=== PATIENT | male | born 1945 | race Caucasian/White ===

== ENCOUNTER 2017-07-01 09:52 | Emergency (ER) | payer OTHER ==
[~2017-07-01] VITALS: Ht 182.9 cm; Wt 68.1 kg
[~2017-07-01 09:52] MED LIST: DOXAZOSIN MESYLA4 MG PO; GLIMEPIRIDE2 MG PO; INDOMETHACIN50 MG PO; LOSARTAN POTAS100 MG PO; VENLAFAXINE HCL75 MG PO
[2017-07-01] MEDS ORDERED: PERCOCET 5/31 TABLET PO (14:53)
[2017-07-01 15:23] VITALS: BP 184/85
== END 2017-07-01 15:24 | disposition home or self-care (01) ==
LOC: EME 09:52
DX: S72.001A Fracture of unspecified part of neck of right femur, initial encounter for closed fracture (principal); W01.0XXA Fall on same level from slipping, tripping and stumbling without subsequent striking against object, initial encounter; Y92.000 Kitchen of unspecified non-institutional (private) residence as the place of occurrence of the external cause; M85.88 Other specified disorders of bone density and structure, other site; Z96.641 Presence of right artificial hip joint; E11.9 Type 2 diabetes mellitus without complications; Z79.84 Long term (current) use of oral hypoglycemic drugs; Z87.891 Personal history of nicotine dependence
CPT/HCPCS: 72192; 73502; 99281; 99284; J2270; J3010

== ENCOUNTER 2017-07-29 21:36 | Inpatient (IN) | payer OTHER ==
[~2017-07-29] VITALS: Ht 182.9 cm; Wt 69.9 kg
[~2017-07-29 21:36] MED LIST changes: +PERCOCET 5/31 TABLET PO
[2017-07-29 22:35] LABS: EOSINOPHIL (%) 1.5 % (0-5); EOSINOPHIL COUNT 0.1 K/uL (0-0.3); IMMATURE GRANULOCYTE COUNT 0.1 K/uL; INSTRUMENT ABS NEUTROPHIL CT 6.4 K/uL; LYMPHOCYTE COUNT 2.1 K/uL (1.0-2.8); MCH 29.6 PG (29.0-34.0); MCHC 33.8 G/DL (30.0-36.0); MCV 87.6 FL (86-99); MEAN PLAT.VOLUME 9.4 uM^3 (9.0-12.4); MONOCYTE (%) 8.6 % (3-12); MONOCYTE COUNT 0.8 K/uL (0-0.8); NEUTROPHIL (%) 66.7 % (45-76); NEUTROPHIL COUNT 6.4 K/uL (1.8-6.4); PLATELET COUNT 252 K/uL (156-360); RBC DIS.WIDTH-SD 41.6 % (39-53); RED BLOOD COUNT 3.88 M/uL (4.00-5.50); WHITE BLOOD COUNT 9.6 K/uL (4.1-10.2)
[2017-07-29 22:54] LABS: CHLORIDE 96 mEq/L (99-109); POTASSIUM 4.4 mEq/L (3.7-5.4); SODIUM 128 mEq/L (136-147)
[2017-07-29 22:56] LABS: GLUCOSE 180 mg/dL (70-99)
[2017-07-29 22:57] LABS: ANION GAP 10 MEQ/L (2-14)
[2017-07-29 22:58] LABS: TOTAL BILIRUBIN 0.3 mg/dL (0.0-1.0)
[2017-07-29 22:59] LABS: SERUM ETHYL ALCOHOL < 10 mg/dL
[2017-07-29 23:00] LABS: ALKALINE PHOSPHATASE 110 IU/L (3-129); GFR ESTIMATE (CALCULATED) > 59 mL/min/ (58.99-99999)
[2017-07-29 23:02] LABS: UREA NITROGEN (BUN) 19 mg/dL (9-23)
[2017-07-29 23:03] LABS: SALICYLATE 20.6 MG/DL (15-30)
[2017-07-29 23:34] LABS: AMPHETAMINE NEGATIVE (500 ng/mL); BARBITURATES NEGATIVE (200 ng/mL); BENZODIAZEPINES NEGATIVE (150 ng/mL); COCAINE NEGATIVE (150 ng/mL); INTERNAL CONTROLS VALID? YES; METHADONE NEGATIVE (200 ng/mL); METHAMPHETAMINE NEGATIVE (500 ng/mL); OPIATES (MORPHINE) PRESUMPTIVE POSITIVE (100 ng/mL); OXYCODONE NEGATIVE (100 ng/mL); PHENCYCLIDINE NEGATIVE (25 ng/mL); PROPOXYPHENE NEGATIVE (300 ng/mL); THC CANNABINOIDS NEGATIVE (50 ng/mL); TRICYCLIC ANTIDEPRESSANTS NEGATIVE (300 ng/mL)
[2017-07-29 23:35] LABS: ADD MEDTOX COMMENT Y
[2017-07-30] MEDS ORDERED: LOPRESSOR25 MG PO (03:53)
[2017-07-30] MEDS ORDERED: LOSARTAN POTASS25 MG PO (03:54)
[2017-07-30] MEDS ORDERED: LOPRESSOR50 MG PO (03:54)
[2017-07-30] MEDS ORDERED: TAMSULOSIN HCL0.4 MG PO (03:56)
[2017-07-30] MEDS ORDERED: METFORMIN HCL1000 MG PO (03:57)
[2017-07-30 04:18] VITALS: BP 154/80
[2017-07-30 06:05] LABS: POINT-OF-CARE METER ID UU13113830; POINT-OF-CARE USER ID ENVTLS63
[2017-07-30 07:42] VITALS: BP 159/75
[2017-07-30 17:04] VITALS: BP 140/75
[2017-07-31 07:34] VITALS: BP 178/89
[2017-07-31 08:43] LABS: Estimated Average Glucose 214 mg/dL (70-123)
[2017-07-31 08:52] LABS: HEMOGLOBIN A1c (GLYCOHEMOGLOB) 9.1 % HGB (Below 5.7)
[2017-07-31 08:59] LABS: ANION GAP 6 MEQ/L (2-14); CHLORIDE 95 MEQ/L (99-109); GFR ESTIMATE (CALCULATED) > 59 mL/min/ (58.99-99999); GLUCOSE 179 mg/dL (70-99); POTASSIUM 4.5 MEQ/L (3.7-5.4); SAMPLE HEMOLYSIS CHECK 0; SAMPLE ICTERIC CHECK 0; SAMPLE LIPEMIA CHECK 0; SODIUM 126 MEQ/L (136-147); UREA NITROGEN (BUN) 8 mg/dL (9-23)
[2017-07-31 12:36] LABS: EOSINOPHIL (%) 1.3 % (0-5); EOSINOPHIL COUNT 0.1 K/uL (0-0.3); HEMATOCRIT 34.2 % (38.0-50.0); IMMATURE GRANULOCYTE (%) 0.6 % (0.0-0.7); IMMATURE GRANULOCYTE COUNT 0.1 K/uL; INSTRUMENT ABS NEUTROPHIL CT 6.5 K/uL; LYMPHOCYTE COUNT 1.7 K/uL (1.0-2.8); MCH 29.4 PG (29.0-34.0); MCV 89.1 FL (86-99); MEAN PLAT.VOLUME 9.7 uM^3 (9.0-12.4); MONOCYTE (%) 7.7 % (3-12); MONOCYTE COUNT 0.7 K/uL (0-0.8); NEUTROPHIL (%) 71.5 % (45-76); NEUTROPHIL COUNT 6.5 K/uL (1.8-6.4); PLATELET COUNT 252 K/uL (156-360); RBC DIS.WIDTH-CV 13.1 % (11.8-14.6); RBC DIS.WIDTH-SD 42.5 % (39-53); RED BLOOD COUNT 3.84 M/uL (4.00-5.50); WHITE BLOOD COUNT 9.1 K/uL (4.1-10.2)
== END 2017-07-31 14:58 | DRG 885 ==
LOC: EME 21:36 → 1WEST 07-30 02:28 → EDOF 07-30 02:28 → ENRESERV 07-30 03:12 → 1WEST 07-30 04:08
PROVIDERS: Emergency Medicine; Psychiatry & Neurology Psychiatry
PROC: 0HQEXZZ Repair Left Lower Arm Skin, External Approach (ICD-10-PCS; principal; 2017-07-30)
DX: F33.2 Major depressive disorder, recurrent severe without psychotic features (principal); R45.851 Suicidal ideations; S61.512A Laceration without foreign body of left wrist, initial encounter; F43.21 Adjustment disorder with depressed mood; G89.4 Chronic pain syndrome; E11.9 Type 2 diabetes mellitus without complications; Z91.5 Personal history of self-harm; I10 Essential (primary) hypertension; N40.0 Benign prostatic hyperplasia without lower urinary tract symptoms; Z87.891 Personal history of nicotine dependence; Z96.649 Presence of unspecified artificial hip joint
CPT/HCPCS: 80048; 80053; 82607; 82746; 82948; 83036; 84443; 84999; 85025; 90839; 99281; 99285; G0480; J2270